=== PATIENT | female | born 1965 | race Caucasian/White ===

== ENCOUNTER → 2017-07-25 | Outpatient (CLI) | payer OTHER ==
[~2017-07-25] MED LIST: ACETAMINOPHEN325 M1 PO; BISACODYL SUPP10 MG RECTAL; IBUPROFEN 400400 M1 PO; IBUPROFEN 800800 M1 PO; NORCO 5-325 TA1 EACH PO; PERCOCET 5-3251 EACH PO; SIMETHICON CHEW80 M1 PO; TRAMADOL 50 MG50 MG PO
--- NOTE | ~2017-07-25 | CNG ---
[facility] [place] [address] CYTO-NONGYN REPORT PROCEDURE Name: MURCIAALEC N Room #: REG [facility]#: [id number] Admission: 07/25/17 Date of : 61 Discharge: Report #: [id number] Path Case #: [id number] CYTOPATHOLOGY REPORT COLLECTION DATE: 07/25/2017 RECEIVED DATE: 07/25/2017 SUBMITTING PHYS: Dr. Ana Paula Palma OTHER PHYS: CLINICAL HISTORY: Dominant nodule inferior pole left lobe thyroid. See also [id number]. SPECIMEN(S) RECEIVED: A.US guided Fine needle aspiration, Left thyroid nodule * * * * * * * * * * * * FINAL DIAGNOSIS: A. US guided Fine needle aspiration, Left thyroid nodule: BETHESDA CATEGORY II. SPECIMEN CONSISTS OF SCANT BLAND FOLLICULAR CELLS, MACROPHAGES, COLLOID, AND BLOOD. THIS PATTERN IS CONSISTENT WITH A BENIGN PROCESS SUCH AN ADENOMATOID NODULE OR A COLLOID NODULE. PATHOLOGIST: Aman Suarez M.D. REPORT ELECTRONICALLY SIGNED BY: Aman Suarez M.D. DATE/TIME: 07/26/2017 11:33 * * * * * * * * * * * * GROSS PATHOLOGY: A. US guided Fine needle aspiration, Left thyroid nodule: The specimen is labeled "Solis Alec N" and consists of two fixed slides, two air dried slides. Twenty mL of clear pink fluid in fixative from the needle rinse is also submitted and one ThinPrep slide and a alcohol fixed cell block were prepared from this material. (clt 07.25.2017) Also received is the RNARetain vial which will be held for molecular studies if needed. DISTRICT EXTENSION SERVICE AGENT(S): WALDEMAR Gale([facility])IAC INITIAL CPT CODE(S): A; 31219, 67301 Professional services performed by [facility] at [facility] [address], [place] [address] Technical services performed by [facility] at [address] [place] [address], [address], [place] [address]. [facility] [address] [place] [address] CYTO-NONGYN REPORT PROCEDURE Name: ALEC MURCIA Room #: REG DEVAUGHN You.#: [id number] Admission: 07/25/17 Date of : 61 Discharge: Report #: [id number] Path Case #: [id number] [facility] [address] [place] [address], [address] [place] [address] PHONE: [phone] DIRECTOR: Rg Crisostomo M.D. * * * END OF REPORT * * *
--- NOTE | ~2017-07-25 | S ---
[facility] [place] [address] SURGICAL PATH RPT PROCEDURE Name: ALEC MURCIA Room #: REG DEVAUGHN Kenyatta.#: [id number] Admission: 07/25/17 Date of : 61 Discharge: Report #: [id number] Path Case #: [id number] PATHOLOGY REPORT COLLECTION DATE: 07/25/2017 RECEIVED DATE: 07/25/2017 SUBMITTING PHYS: Dr. Ana Paula Palma OTHER PHYS: SPECIMEN(S) RECEIVED: A.Neck, thyroid biopsy * * * * * * * * * * * * FINAL DIAGNOSIS: "Neck, thyroid biopsy", image guided needle biopsy: - Thyroid tissue with mixed macro microfollicular thyroid and focal fresh hemorrhage (see comment). (CLW:pit; 07/29/2017) COMMENT: No cytologic atypia is identified. The findings likely represent an adenomatous nodule. Classic cytologic features of thyroid papillary carcinoma are not identified. Of note, this is a small portion of a larger lesion and may not be entirely patient portal representative. Clinical and radiographic correlation is recommended. The case is co-reviewed with Dr. Garima Martin. (CLW:pit; 07/29/2017) PATHOLOGIST: Bethanie Partida M.D. REPORT ELECTRONICALLY SIGNED BY: Bethanie Partida M.D. DATE/TIME: 07/29/2017 22:11 * * * * * * * * * * * * GROSS PATHOLOGY: Received in formalin labeled "Alec Espinoza, left thyroid biopsy," are four distinct needle cores/fragments of quintana soft tissue ranging from 0.2 to 0.3 cm in length, which are submitted entirely in cassette A1. (TSD; 07/26/2017) CLINICAL HISTORY: Nodule INITIAL CPT CODE(S): A; [address] [facility] [place] [address] SURGICAL PATH RPT PROCEDURE Name: ALEC MURCIA Room #: REG DEVAUGHN Appiah#: [id number] Admission: 07/25/17 Date of : 61 Discharge: Report #: [id number] Path Case #: [id number] Professional services performed by [facility] at [address] [place] [address] Technical services performed by [facility] at [address] [place] [address], [facility] [address] [address]. [facility] [address] [place] [address] PHONE: [phone] DIRECTOR: Rg Crisostomo M.D. * * * END OF REPORT * * *
== END | disposition home or self-care (01) ==
LOC: ULTRA 08:24
DX: D34 Benign neoplasm of thyroid gland (principal)